=== PATIENT | female | born 1990 | race African-American/Black ===

== ENCOUNTER 2021-09-16 07:38 | Emergency (ER) | payer OTHER ==
[~2021-09-16] VITALS: Ht 157.5 cm; Wt 77.2 kg
--- NOTE | 2021-09-16 08:11 | PHYS DOC ---
General Adult EDM: Chief Complaint: EYE PROBLEMS HPI: HPI: 31-year-old female presents with left eye visual disturbance. The patient denies any change in visual acuity. She has been seeing a halo or whitein the left eye last 3 days. This started 1 day after her [facility]. She was reported to have elevated pressures in the low 20s. She has a history of ocular hypertension but has not reached a level for treatment, just monitoring. She thought the disturbance would go away but it seems to be more frequent. It happens at random. She noticed it was much more frequent last night and decided to come in today. She denies any falls or trauma. She has no other medical complaints this time. Review of Systems: Review of Systems: Constitutional: Denies fever or chills Eyes: White flash left eye HENT: Denies nasal congestion or sore throat Respiratory: Denies cough or shortness of breath Cardiovascular: Denies chest pain or edema GI: Denies abdominal pain, nausea, vomiting, bloody stools or diarrhea : Denies dysuria Musculoskeletal: Denies back pain or joint pain Integument: Denies rash Neurologic: Denies headache, focal weakness or sensory changes Endocrine: Denies polyuria or polydipsia Lymphatic: Denies swollen glands Psychiatric: Denies depression or anxiety Allergies: Allergies: Allergies Coded Allergies Type Severity Reaction Last Updated Verified No Known Drug Allergies 09/16/21 No Physical Exam: PE: Constitutional: Well developed, well nourished, no acute distress, non-toxic appearance. [] HENT: Normocephalic, atraumatic, bilateral external ears normal, oropharynx moist, no oral exudates, nose normal. [] Eyes: PERRLA, EOMI, conjunctiva normal, no discharge. Limited funduscopic exam did not show any obvious normalities. [] Neck: Normal range of motion, no tenderness, supple, no stridor. [] Cardiovascular: Heart rate regular rhythm, no murmur [] Lungs & Thorax: Bilateral breath sounds clear to auscultation [] Abdomen: Bowel sounds normal, soft, no tenderness, no masses, no pulsatile masses. [] Skin: Warm, dry, no erythema, no rash. [] Back: No tenderness, no CVA tenderness. [] Extremities: No tenderness, no cyanosis, no clubbing, ROM intact, no edema. [] Neurologic: Alert and oriented X 3, normal motor function, normal sensory function, no focal deficits noted. [] Psychologic: Affect normal, judgement normal, mood normal. [] EKG: EKG: [] Radiology/Procedures: Radiology/Procedures: [] Impressions: EXAMINATION: CT HEAD/BRAIN WO CLINICAL HISTORY: Vision changes, halo, hx elevated ocular pressure. TECHNIQUE: Serial axial images without IV contrast were obtained from the vertex to the foramen magnum. CT Dose Reduction Employed: One or more of the following individualized dose reduction techniques were utilized for this examination: 1. Automated exposure control 2. Adjustment of the mA and/or kV according to patient size 3. Use of iterative reconstruction technique. COMPARISON: None FINDINGS: Acute Change: No evidence of acute intracranial abnormality. Hemorrhage: No evidence of acute intracranial hemorrhage. Mass Lesion/Mass Effect: No evidence of intracranial mass or extraaxial fluid collection. No significant mass effect. Parenchyma: Parenchyma within normal limits for age. Ventricles: Ventricles within normal limits for age. Paranasal Sinuses and Skull Base: Visualized paranasal sinuses clear. Partially visualized orbits and globes unremarkable. Visualized skull base and soft tissues unremarkable. IMPRESSION: No evidence of acute intracranial abnormality. Electronically signed by: Sergio De La Cruz DO (09/16/2021 8:24 AM) [id number] DICTATED AND SIGNED BY: SERGIO DE LA CRUZ DO DATE: 09/16/21821 CC: LIA PEOPLES DO; OZIEL HUTCHISON APRN ~MTH0 0 Heart Score: C/O Chest Pain: N/A Risk Factors: Risk Factors: DM, Current or recent (<one month) smoker, HTN, HLP, family history of CAD, obesity. Risk Scores: Score 0 - 3: 2.5% MACE over next 6 weeks - Discharge Home Score 4 - 6: 20.3% MACE over next 6 weeks - Admit for Clinical Observation Score 7 - 10: 72.7% MACE over next 6 weeks - Early Invasive Strategies Course & Med Decision Making: Course & Med Decision Making Pertinent Labs and Imaging studies reviewed. (See chart for details) I am unable to get a reliable eye pressure measurement. I will CT the patient check basic blood work. I have already informed her that she will need to see ophthalmology today if at all possible. The crawler tractor operator she saw the beginn ing of the week was far [place] because [facility]. She will see someone closer. The patient's head CT is negative for acute findings. Her labs are unremarkable. I have provided her a local resource for an crawler tractor operator. She has an appointment with Dr. Orta at 10:00. She is stable for discharge at this time. [] Darnell Disclaimer: Darnell Disclaimer: This electronic medical record was generated, in whole or in part, using a voice recognition dictation system. Departure Departure: Impression: Primary Impression: Transient visual disturbance, left Disposition: 01 HOME / SELF CARE / HOMELESS Condition: STABLE Referrals: OZIEL HUTCHISON APRN (PCP) Patient Instructions: Visual Disturbances LIA PEOPLES DO Sep 16, 2021 08:11
--- NOTE | 2021-09-16 08:27 | RAD ---
EXAMINATION: CT HEAD/BRAIN WO CLINICAL HISTORY: Vision changes, halo, hx elevated ocular pressure. TECHNIQUE: Serial axial images without IV contrast were obtained from the vertex to the foramen magnu m. CT Dose Reduction Employed: One or more of the following individualized dose reduction techniques wer e utilized for this examination: 1. Automated exposure control 2. Adjustment of the mA and/or kV ac cording to patient size 3. Use of iterative reconstruction technique. COMPARISON: None FINDINGS: Acute Change: No evidence of acute intracranial abnormality. Hemorrhage: No evidence of acute intracranial hemorrhage. Mass Lesion/Mass Effect: No evidence of intracranial mass or extraaxial fluid collection. No signific ant mass effect. Parenchyma: Parenchyma within normal limits for age. Ventricles: Ventricles within normal limits for age. Paranasal Sinuses and Skull Base: Visualized paranasal sinuses clear. Partially visualized orbits and globes unremarkable. Visualized skull base and soft tissues unremarkable. IMPRESSION: No evidence of acute intracranial abnormality. Electronically signed by: Sergio Teran DO (09/16/2021 8:24 AM) [id number]
[2021-09-16 08:48] LABS: BASO % 1 % (0-3); EOS % 0 % (0-3); HEMATOCRIT 38.8 % (36.0-47.0); HEMOGLOBIN 13.2 g/dL (12.0-15.5); LYMPH # 1.7 x10^3/uL (1.0-4.8); LYMPH % 52 % (24-48); MEAN CORPUSCULAR HEMOGLOBIN 30 pg (25-35); MEAN CORPUSCULAR HGB CONC 34 g/dL (31-37); MEAN CORPUSCULAR VOLUME 89 fL (79-100); MONO # 0.2 x10^3/uL (0.0-1.1); MONO % 6 % (0-9); NEUT # 1.3 x10^3uL (1.8-7.7); NEUT % 41 % (31-73); PLATELET COUNT 362 x10^3/uL (140-400); RED BLOOD COUNT 4.35 x10^6/uL (3.50-5.40); WHITE BLOOD COUNT 3.2 x10^3/uL (4.0-11.0)
[2021-09-16 08:55] LABS: CALCIUM 9.1 mg/dL (8.5-10.1); CREATININE 0.8 mg/dL (0.6-1.0); POTASSIUM 4.1 mmol/L (3.5-5.1)
[2021-09-16 09:02] LABS: ALBUMIN 3.9 g/dL (3.4-5.0); ALBUMIN/GLOBULIN RATIO 1.1 (1.0-1.7); TOTAL BILIRUBIN 0.3 mg/dL (0.2-1.0); TOTAL PROTEIN 7.4 g/dL (6.4-8.2)
[2021-09-16 09:15] VITALS: BP 122/70
== END 2021-09-16 09:20 | disposition home or self-care (01) ==
LOC: ER 07:38
DX: H53.8 Other visual disturbances (principal)
CPT/HCPCS: 36415; 70450; 80053; 85025; 99284

== ENCOUNTER 2021-10-30 12:12 | Emergency (ER) | payer OTHER ==
[~2021-10-30] VITALS: Ht 157.5 cm; Wt 77.2 kg
[2021-10-30 12:12] VITALS: BP 135/75
--- NOTE | 2021-10-30 13:07 | PHYS DOC ---
Past History Additional Past Medical Histor: OCCULAR HYPERTENSION Past Surgical History: No Surgical History Alcohol Use: Rarely General Adult EDM: Chief Complaint: ANKLE PROBLEM HPI: HPI: Patient is a 31-year-old female coming in for 2 weeks of worsening right ankle and foot pain. Patient states that she was having difficulty bearing weight yesterday. Does not recall any injury but states that she has been working out and walking for long periods of time daily. Patient states she is wearing her sneakers and walking on the sidewalks in concrete. Review of Systems: Review of Systems: All other systems within normal limits except for as noted in the HPI Allergies: Allergies: Allergies Coded Allergies Type Severity Reaction Last Updated Verified No Known Drug Allergies 09/16/21 No Physical Exam: PE: Constitutional: Well developed, well nourished, no acute distress, non-toxic appearance. [] HENT: Normocephalic, atraumatic, bilateral external ears normal, nose normal. [] Eyes: PERRLA, conjunctiva normal, no discharge. [] Neck: No rigidity, supple, no stridor. [] Cardiovascular: Regular rate and rhythm, brisk cap refill [] Lungs & Thorax: Non labored symmetric respirations, no tachypnea or respiratory distress [] Abdomen: Soft, nondistended. Skin: Warm, dry, no erythema, no rash. [] Back: Unremarkable Extremities: No deformities, range of motion grossly intact, no lower extremity edema. Tenderness and slight swelling over the lateral left foot. No point tenderness on malleolus or fifth metatarsal. No overlying warmth erythema [] Neurologic: Alert and oriented X 3, no focal deficits noted. [] Psychologic: Affect normal, judgement normal, mood normal. [] Current Patient Data: Vital Signs: Vital Signs Date Time Temp Pulse Resp B/P (MAP) Pulse Ox O2 Delivery O2 Flow Rate FiO2 10/30/21 12:12 98 16 135/75 (95) 100 Room Air EKG: EKG: [] Radiology/Procedures: Radiology/Procedures: [address] [address] IMAGING REPORT Signed PATIENT: BRIDGER CORRALES ACCOUNT: [id number] : 1990 LOCATION: ER AGE: 31 SEX: F EXAM STATUS: REG ER ORD. PHYSICIAN: SANDY WASHINGTON MD REASON: pain, lateral malleolus and foot, X 2-3 WEEKS, NO KNOWN INJURY PROCEDURE: FOOT RIGHT 3V EXAM: 2 views views of the right ankle, 3 views of the right foot DATE: 10/30/2021 12:47 PM INDICATION: Reason: pain, lateral malleolus and foot, X 2-3 WEEKS, NO KNOWN INJURY / Spl. Instructions: / History: COMPARISON: No Prior FINDINGS: No acute fracture or dislocation. Ankle mortise is congruent. Talar dome is intact. Joint spaces are preserved without significant degenerative/proliferative change. No significant soft tissue swelling. IMPRESSION: No acute fracture or dislocation. Electronically signed by: Cameron Laurent DO (10/30/2021 1:16 PM) [id number] DICTATED AND SIGNED BY: CAMERON LAURENT DO DATE: 10/30/21 1314 CC: SANDY WASHINGTON MD; OZIEL HUTCHISON APRN ~ [] Heart Score: C/O Chest Pain: No Risk Factors: Risk Factors: DM, Current or recent (<one month) smoker, HTN, HLP, family history of CAD, obesity. Risk Scores: Score 0 - 3: 2.5% MACE over next 6 weeks - Discharge Home Score 4 - 6: 20.3% MACE over next 6 weeks - Admit for Clinical Observation Score 7 - 10: 72.7% MACE over next 6 weeks - Early Invasive Strategies Course & Med Decision Making: Course & Med Decision Making Pertinent Labs and Imaging studies reviewed. (See chart for details) [] Darnell Disclaimer: Darnell Disclaimer: This electronic medical record was generated, in whole or in part, using a voice recognition dictation system. Departure Departure: Impression: Primary Impression: Ankle pain, right Disposition: 01 HOME / SELF CARE / HOMELESS Condition: STABLE Referrals: OZIEL HUTCHISON APRN (PCP) MELANY SANDERS DPM Patient Instructions: RICE - Routine Care for Injuries SANDY WASHINGTON MD Oct 30, 2021 13:07
--- NOTE | 2021-10-30 13:18 | RAD ---
EXAM: 2 views views of the right ankle, 3 views of the right foot DATE: 10/30/2021 12:47 PM INDICATION: Reason: pain, lateral malleolus and foot, X 2-3 WEEKS, NO KNOWN INJURY / Spl. Instruction s: / History: COMPARISON: No Prior FINDINGS: No acute fracture or dislocation. Ankle mortise is congruent. Talar dome is intact. Joint spaces are preserved without significant degenerative/proliferative change. No significant soft tissue swelling. IMPRESSION: No acute fracture or dislocation. Electronically signed by: Rm Laurent DO (10/30/2021 1:16 PM) [id number]
== END 2021-10-30 13:48 | disposition home or self-care (01) ==
LOC: ER 12:12
DX: M25.571 Pain in right ankle and joints of right foot (principal); M79.671 Pain in right foot
CPT/HCPCS: 73610; 73630; 99284